=== PATIENT | female | born 1990 | race African-American/Black ===

== ENCOUNTER 2017-09-06 13:06 | Emergency (ER) | payer OTHER, MEDICAID ==
[~2017-09-06] VITALS: Ht 165.1 cm; Wt 68.0 kg
[2017-09-06] MEDS ORDERED: IBUPROFEN 600MG TABLET PO ONE (15:15)
[2017-09-06 16:07] VITALS: BP 118/69
== END 2017-09-06 16:08 | disposition home or self-care (01) ==
LOC: ER 14:18
DX: S90.31XA Contusion of right foot, initial encounter (principal); X50.1XXA Overexertion from prolonged static or awkward postures, initial encounter; Y93.01 Activity, walking, marching and hiking; Y92.89 Other specified places as the place of occurrence of the external cause
CPT/HCPCS: 73630; 81025; 99284

== ENCOUNTER 2017-09-08 13:45 | Emergency (ER) | payer OTHER, MEDICAID ==
[~2017-09-08] VITALS: Ht 165.1 cm; Wt 70.0 kg
[2017-09-08 17:35] VITALS: BP 108/68
== END 2017-09-08 18:30 | disposition home or self-care (01) ==
LOC: ER 13:45
DX: Z02.79 Encounter for issue of other medical certificate (principal); S93.601A Unspecified sprain of right foot, initial encounter; W19.XXXA Unspecified fall, initial encounter; Y93.9 Activity, unspecified; Y92.9 Unspecified place or not applicable
CPT/HCPCS: 81025; 99281; Z7610